=== PATIENT | male | born 1965 | race Caucasian/White ===

== ENCOUNTER 2017-05-09 11:09 | Outpatient (CLI) | payer BC ==
--- NOTE | 2017-05-09 15:53 | PN ---
Date/Time of Note Date/Time of Note DATE: 05/09/17 TIME: 15:48 Outpatient Progress Note Chief Complaint Pneumonia/sepsis/wheezing/colon polyp/PUD HPI Pneumonia/patient has minimal cough, no expectoration, no fever chill, patient still on antibiotic, Sepsis/no fever chill, patient was recently admitted with a sepsis, patient had pneumonitis, patient still on antibiotic, denies any chest pain, no hemoptysis, Wheezing/patient still has wheezing, patient taking inhaler, no history of any asthma, patient was taking inhaler wrong, Colon polyp/patient has colon polyp, patient had EGD and colonoscopy, and patient had aspiration pneumonia, PUD/no nausea vomiting, hematemesis melena, Review of Systems Const: No Fever, no chills, no Wt. loss, no Fatigue, normal appetite, no diaphoresis. Eyes: No pain, no discharge, no redness, no visual change, no foreign body. ENT: No pain, no bleeding, no congestion, no sore throat, no dysphagia, no discharge or rhinitis. Lymph: No adenopathy, no tender nodes, no lymphedema. Resp: No SOB, minimal cough, no sputum, slight wheezing, no chest pain. CV: No chest pain, no palpitaions, no HERMOSILLO, no PND, no edema. GI: Normal appetite, no pain, no nausea, no vomiting, no diarrhea, no blood, no constipation. : No frequency, no urgency, no dysuria, no hematuria, no flank pain, no discharge, no bleeding. Musc: No bone/joint pain, no back pain, no neck pain, no knee pain, no restricted ROM. Skin: No rash, no skin lesions, no erythema, no laceration, no bruising, no pruritus. Neuro: No LOCO, no dizziness, no syncope, no seizure, no focal-weakness. Endo: No polyuria, no polydypsia, no dry-skin, no temp-intolerance. Psych: No hallucinations, no depression, no anxiety, no suicidal ideation. Ext: No edema, no pain, no ulcer, no weakness. Physical Exam General Appearance: A 51 year-old male bilateral few who appears well-developed , well-nourished, in no acute distress. HEENT: Head normocephalic, atraumatic. Pupils equal, round, reactive to light and accommodate. Sclerae are no jaundice. Nasal turbinates pink without erythema or nasal discharge. Mucous membranes pink and moist without lesions. Oropharynx clear without any exudate or discharge. NECK: Supple. Trachea midline, No thyromegaly, No cervical lymphadenopathy, No mass, No carotid bruits, No JVD, Carotid pulses 2+ bilaterally. PULMONARY: Clear to auscultaion bilaterally, No retractions, Chest expansion symmetric bilaterally, no rales, bilateral few ronchi, no dulness on percussion. CARDIAC: Normal SI and S2, Regular rate and rythm, no murmur, gallop, or rub. GASTROINTESTINAL: Abdomen is soft, non-tender, Non Rigid, No distention, Positive bowel sounds x4 quadrants, Liver normal. SKIN: Warm, dry, no rash, no bruise, no echmosis. EXTREMITIES: Bilateral lower extremities normal, no edema, no phlabitus, pulse palpable, no contracture. MUSCULOSKELETAL: Spine Normal, Non-tender, Normal range of motion, No swelling, no deformity, no clubbing, or cyanosis, the patient has no edema to bilateral lower extremities, dorsalis pedis pulses palpable bilaterally. NEUROLOGIC: The patient is awake, alert, oriented, responding to yes/no questions appropriately, moving all extremities, cranial nerve intact, normal strenght, normal power, normal coordination, normal gait. PMH Pneumonia/sepsis/colon polyp/PUD/ No allergy Social Hx No smoking no drinking, Family Hx Strong family history of colon cancer, Assessment/Plan Impression Pneumonia improving Sepsis improving Wheezing improving Colon polyp PUD Plan Patient education done, patient explained how to take inhaler, patient will be following instruction, Patient encouraged to follow with the primary care physician, Patient has all the medication, patient does not need any medication at present, Patient encouraged to increase activity, aspiration precaution, and discussed with the patient, Patient has inhaler, and all of the medication, will follow closely, DEVIN FELIPE MD May 09, 2017 15:53
== END 2017-05-09 15:51 | disposition home or self-care (01) ==
LOC: DCC 11:09
PROVIDERS: ATTEND Internal Medicine
DX: J18.9 Pneumonia, unspecified organism (principal); A41.9 Sepsis, unspecified organism; R06.2 Wheezing; Z86.010 Personal history of colon polyps; K27.9 Peptic ulcer, site unspecified, unspecified as acute or chronic, without hemorrhage or perforation
CPT/HCPCS: G0463